=== PATIENT | male | born 1990 | race Caucasian/White ===

== ENCOUNTER 2017-01-26 07:53 | Emergency (ER) | payer OTHER ==
--- NOTE | 2017-01-26 08:03 | EDPHY ---
HPI/HX/ROS/PE/MDM Narrative: CHIEF COMPLAINT: Vomiting, diarrhea with blood HPI: The patient is a 26 y/o male with a history of hemorrhoids complaining of vomiting, diarrhea with blood, and nausea since Wednesday, 2 days ago. For the last several weeks he has had inconsistent bowel movements. On Wednesday, 3 days ago, he believes he ate undercooked ground beef. The next day he had watery and loose diarrhea. He went to an urgent care after he noticed bright red blood with a mucous consistency mixed into his stool. There was more mucous present in his stool than prior hemorrhoid episodes. He is currently having intermittent LUQ abdominal pain. Denies dark stool, fever, urinary complaints, chest pain or other pertinent symptoms. REVIEW OF SYSTEMS: Aside from elements discussed in the HPI, a comprehensive 10-point review of systems was reviewed and is negative. PMH: Bladder and kidney surgery, irritable bowel syndrome, hemorrhoids SOCIAL HISTORY: Lives in [place], works for [employer] PHYSICAL EXAM: General: Patient is alert, in no acute distress. ENT: Eyes are normal to inspection. ENT inspection normal. Neck: Normal inspection. Full range of motion. Respiratory: No respiratory distress. Breath sounds normal bilaterally. Cardiovascular: Regular rate and rhythm. Strong peripheral pulses. Normal cap refill. Abdomen: The abdomen is nontender to palpation. There are no peritoneal signs. There are normal bowel sounds. Back: Normal to inspection. No tenderness to palpation. Skin: Normal color. No rash. Warm and dry. Extremities: Normal appearance. Full range of motion. Neuro: Oriented x3. Normal motor function. Normal sensory function. Portions of this note were transcribed by an ED scribe. I personally performed the history, physical exam, and medical decision making; and confirm the accuracy of the information in the transcribed note. ED Course: 0817: 4mg IV Zofran and 1L IV NS administered. Patient's stool sample is negative for GI pathogen. Reassessed patient and discussed laboratory findings. He is feeling better after Zofran and NS. I have prescribed home Zofran. Return precautions provided ; patient is comfortable with this plan. MDM: This is a young healthy male who complains of diarrhea, mild abdominal pain and some blood-streaked stool in the setting of history of hemmorhoids. His workup reveals a negative WBC, which together with a benign abdominal exam make serious abdominal pathology such as appendicitis or diverticulitis very unlikely. There is no evidence of significant GI bleed. A stool sample was obtained and sent for PCR which is negative for organism. I suspect the patient 's blood in stool is secondary to hemorrhoids as he suspects. I think he is safe for further workup as an outpatient. I do not think advanced imaging here in the ED is indicated. We discussed strict return precautions, and the patient promises to return for any worsening or continued symptoms. - Data Points Laboratory Results: Laboratory Results 01/26/17 08:07 01/26/17 08:07 01/26/17 01/26/17 08:07 08:07 WBC 5.64 10^3/uL 10^3/uL (3.80-9.50) RBC 5.41 10^6/uL 10^6/uL (4.40-6.38) Hgb 16.9 g/dL g/dL (13.7-17.5) Hct 47.5 % % (40.0-51.0) MCV 87.8 fL fL (81.5-99.8) MCH 31.2 pg pg (27.9-34.1) MCHC 35.6 g/dL g/dL (32.4-36.7) RDW 13.2 % % (11.5-15.2) Plt Count 234 10^3/uL 10^3/uL (150-400) MPV 10.0 fL fL (8.7-11.7) Neut % (Auto) 57.1 % % (39.3-74.2) Lymph % (Auto) 28.0 % % (15.0-45.0) [place] % (Auto) 10.6 % % (4.5-13.0) Eos % (Auto) 2.0 % % (0.6-7.6) Baso % (Auto) 0.5 % % (0.3-1.7) Nucleat RBC Rel Count 0.0 % % (0.0-0.2) Absolute Neuts (auto) 3.22 10^3/uL 10^3/uL (1.70-6.50) Absolute Lymphs (auto) 1.58 10^3/uL 10^3/uL (1.00-3.00) Absolute Monos (auto) 0.60 10^3/uL 10^3/uL (0.30-0.80) Absolute Eos (auto) 0.11 10^3/uL 10^3/uL (0.03-0.40) Absolute Basos (auto) 0.03 10^3/uL 10^3/uL (0.02-0.10) Absolute Nucleated RBC 0.00 10^3/uL 10^3/uL (0-0.01) Immature Gran % 1.8 % H % (0.0-1.1) Immature Gran # 0.10 10^3/uL 10^3/uL (0.00-0.10) Sodium 140 mEq/L mEq/L (134-144) Potassium 4.4 mEq/L mEq/L (3.5-5.2) Chloride 103 mEq/L mEq/L (97-110) Carbon Dioxide 24 mEq/l mEq/l (22-31) Anion Gap 13 mEq/L mEq/L (8-16) BUN 10 mg/dL mg/dL (7-23) Creatinine 0.9 mg/dL mg/dL (0.7-1.3) Estimated GFR > 60 Glucose 120 mg/dL H mg/dL (70-100) Calcium 9.8 mg/dL mg/dL (8.5-10.4) Medications Given: Discontinued Medications Sodium Chloride (Ns) 1,000 mls @ 0 mls/hr IV EDNOW ONE; Wide Open PRN Reason: Protocol Stop: 01/26/17 08:14 Last Admin: 01/26/17 08:24 Dose: 1,000 mls Ondansetron HCl (Zofran) 4 mg IVP EDNOW ONE Stop: 01/26/17 08:17 Last Admin: 01/26/17 08:30 Dose: Not Given Microbiology Results: MICROBIOLOGY 01/26/17 08:23 Stool Gastrointestinal Tract Panel (PCR) - Final No Organism Detected General Time Seen by Provider: 01/26/17 08:02 Initial Vital Signs: Initial Vital Signs Temperature (C) 37 C 01/26/17 07:56 Heart Rate 75 01/26/17 07:56 Respiratory Rate 16 01/26/17 07:56 Blood Pressure 119/79 01/26/17 07:56 O2 Sat (%) 97 01/26/17 07:56 O2 Delivery Mode Room Air Allergies/Adverse Reactions: gentamicin [Gentamicin] Allergy (Verified 08/30/14 22:42) Home Medications: Medication Instructions Recorded Bentyl 10 MG (RX) 08/30/14 Cephalexin [Keflex] 500 mg PO TID #21 cap 08/30/14 Omeprazole [Prilosec 20 mg] 08/30/14 Ondansetron Odt [Zofran Odt] 4 mg PO Q4PRN PRN #10 tab 01/26/17 Ondansetron Odt [Zofran Odt] 4 mg PO Q4PRN PRN #10 tab 01/26/17 Departure - Departure Disposition: Home, Routine, Self-Care Clinical Impression: Nausea & vomiting Condition: Good Instructions: Acute Nausea and Vomiting (ED) Additional Instructions: 1. Increase fluid intake. 2. Take 4mg oral Zofran as needed for nausea. 3. Follow-up with your primary doctor within 72 hours. 4. Return to the Emergency Department for fever, chest pain, shortness of breath , increasing pain, or other worsening of condition. Referrals: [facility] [Other] - As per Instructions Prescriptions: Ondansetron Odt [Zofran Odt] 4 mg PO Q4PRN PRN #10 tab PRN Reason: Nausea Ondansetron Odt [Zofran Odt] 4 mg PO Q4PRN PRN #10 tab PRN Reason: Nausea Report Scribed for: David Weber Report Scribed by: Parris Kilgore Date of Report: 01/26/17 Time of Report: 08:03
[2017-01-26] MEDS ORDERED: NS 1,000 ML IV ONE (08:13)
[2017-01-26] MEDS ORDERED: ONDANSETRON 4 MG/2 ML VIAL IVP ONE (08:16)
[2017-01-26 08:20] LABS: % IMMATURE GRANULYOCYTES 1.8 % (0.0-1.1); ADD DIFF? NO; ADD MORPH? NO; ADD SCAN? NO; ATYPICAL LYMPHOCYTE FLAG 0 (0-99); FRAGMENT RBC FLAG 0 (0-99); HEMATOCRIT 47.5 % (40.0-51.0); HEMOGLOBIN 16.9 g/dL (13.7-17.5); LEFT SHIFT FLG 20 (0-99); LIPEMIA HEMOLYSIS FLAG 90 (0-99); MEAN CELL HEMOGLOBIN 31.2 pg (27.9-34.1); MEAN CELL HEMOGLOBIN CONCENTR. 35.6 g/dL (32.4-36.7); MEAN CELL VOLUME 87.8 fL (81.5-99.8); PLATELET CLUMPS FLAG 0 (0-99); PLATELET COUNT 234 10^3/uL (150-400); RED BLOOD CELL COUNT 5.41 10^6/uL (4.40-6.38); RED CELL DISTRIBUTION WIDTH 13.2 % (11.5-15.2)
[2017-01-26 08:53] LABS: ANION GAP 13 mEq/L (8-16); CALCIUM 9.8 mg/dL (8.5-10.4); CARBON DIOXIDE 24 mEq/l (22-31); CHLORIDE 103 mEq/L (97-110); CREATININE 0.9 mg/dL (0.7-1.3); GLOMERULAR FILTRATION RATE > 60; GLUCOSE 120 mg/dL (70-100); POTASSIUM 4.4 mEq/L (3.5-5.2); SODIUM 140 mEq/L (134-144)
[2017-01-26 13:03] VITALS: BP 118/70; PULSE 65; RESP 18; TEMP 98.1; O2SAT 95
== END 2017-01-26 13:07 | disposition home or self-care (01) ==
DX: R11.2 Nausea with vomiting, unspecified (principal); E86.9 Volume depletion, unspecified
CPT/HCPCS: J2405

== ENCOUNTER 2017-06-14 11:57 | Emergency (ER) | payer OTHER ==
--- NOTE | 2017-06-14 12:49 | EDPHY ---
H & P Stated Complaint: Back pain Time Seen by Provider: 06/14/17 12:49 HPI/ROS: HPI: This is a 27-year-old male who presents with Chief Complaint: Lower back pain Location: Bilateral lower back Quality: Pain and decreased range of motion Duration: Since yesterday evening around 7:00 p.m. Signs and Symptoms: No bleeding, no radiation, no numbness, no weakness, no tingling, no incontinence, + decreased range of motion, no swelling, + pain, no fever Timing: Acute Severity: Severe Context: Patient arrives via EMS with complaints of sudden onset of bilateral, mid and lower lumbar pain that occurred around 7:00 p.m. 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 He reports that he felt a sharp, pulling and popping sensation in his mid and lower back that almost brought him to his knees. He reports that he had increased pain with trying to straighten. He was unable to climb into bed or climb stairs. He reports that he had no prior history of lower back pain/injuries. He is able to urinate without difficulty. He complains of decreased range of motion and severe pain despite receiving 100 mcg of fentanyl en route to the emergency room. Denies paresthesias/weakness/bowel or bladder incontinence or problems. Urinal noted long-term filled at bedside with dark yellow urine. Modifying Factors: See above Comment: ROS: see HPI Constitutional: No fever, no chills, no weight loss Eyes: No blurred vision Respiratory: No shortness of breath, no cough Cardiovascular: No chest pain Gastrointestinal: No nausea, no vomiting no diarrhea Genitourinary: No dysuria Extremities: No myalgias Neurologic: No weakness, no numbness Skin: No rashes Hematologic: No bruising, no bleeding MEDICAL/SURGICAL/SOCIAL HISTORY: med hx-ibs surg-bladder,kidney and tonsils, duplicate R kidney Social history: Employed [employer] CONSTITUTIONAL: Moderate distress, irritable, young adult white male who is nontoxic in appearance, awake and alert HEENT: Atraumatic and normocephalic, PERRL, EOMI. Nares patent; no rhinorrhea; no nasal mucosal edema. Tympanic membranes clear. Oropharynx clear, no exudate and moist pink mucosa. Airway patent. No lymphadenopathy. No meningismus. Cardiovascular: Normal S1/S2, regular rate, regular rhythm, without murmur rub or gallop. PULMONARY/CHEST: Symmetrical and nontender. Clear to auscultation bilaterally. Good air movement. No accessory muscle usage. ABDOMEN: Soft, nondistended, nontender, no rebound, no guarding, no peritoneal signs, no masses or organomegaly. No CVAT. PELVIC: no pain with rocking; bilateral hips flexion 125 degrees, extension 30 degrees, mild pain internal rotation and no pain external rotation. BACK: No midline tenderness, bilateral lumbar reproducible paraspinous muscle tenderness, no paraspinous spasm, deep tendon reflexes 2/2, moderate pain with straight leg raise, No foot drop. Achilles reflexes are equal bilaterally. Patient will not perform flexion, extension, bilateral lateral rotation secondary to pain. EXTREMITIES: 2/2 pulses, strength 5/5, no deformities, no clubbing, no cyanosis or edema. NEUROLOGICAL: no focal neuro deficits. GCS 15. SKIN: Warm and dry, no erythema. no rash. Good capillary refill. Source: Patient, EMS Exam Limitations: No limitations - Medical/Surgical History Hx Asthma: No Hx Chronic Respiratory Disease: No Hx Diabetes: No Hx Cardiac Disease: No Hx Renal Disease: No Hx Cirrhosis: No Hx Alcoholism: No Hx HIV/AIDS: No Hx Splenectomy or Spleen Trauma: No Other PMH: med hx-ibs. surg-bladder,kidney and tonsils, duplicate R kidney - Social History Smoking Status: Current every day smoker Constitutional: Initial Vital Signs Temperature (C) 36.7 C 06/14/17 11:59 Heart Rate 55 L 06/14/17 11:59 Respiratory Rate 18 06/14/17 11:59 Blood Pressure 119/69 06/14/17 11:59 O2 Sat (%) 94 06/14/17 11:59 O2 Delivery Mode Room Air Allergies/Adverse Reactions: gentamicin [Gentamicin] Allergy (Verified 06/14/17 12:04) Home Medications: Medication Instructions Recorded Bentyl 10 MG (RX) 08/30/14 Cephalexin [Keflex] 500 mg PO TID #21 cap 08/30/14 Omeprazole [Prilosec 20 mg] 08/30/14 Ondansetron Odt [Zofran Odt] 4 mg PO Q4PRN PRN #10 tab 01/26/17 Ondansetron Odt [Zofran Odt] 4 mg PO Q4PRN PRN #10 tab 01/26/17 Diazepam [Valium 5 MG (*)] 5 mg PO Q8 PRN #10 tab 06/14/17 methylPREDNISolone [Medrol Dose 1 each PO AD #0 ea 06/14/17 Amari] oxyCODONE/APAP 5/325 [Percocet 1 - 2 tab PO Q4H PRN #10 tab 06/14/17 5/325 (*)] Medical Decision Making - Diagnostics Imaging Results: Imaging Impressions Lumbar Spine MRI 06/14/17 13:10 Impression: 1. Multilevel mild degenerative disk disease, worse at L1-L2 and multilevel mild bilateral facet arthropathies, with mild disk bulges, resulting in mild central canal stenosis, worse at the L3-L4 level, without neural foraminal stenosis. 2. Please see above findings at specific disk levels. ED Course/Re-evaluation: Patient reports that his pain is still 10/10 with decreased range of motion. MRI lumbar spine ordered along with IV Valium, IV Decadron, IV Toradol, and p.o. Gabapentin 1530: Notified by nursing that patient is now complaining of moderate pain again. IV Dilaudid 1 mg ordered. 1620: Lumbar MRI: Multilevel mild degenerative disk disease, worse at L1-L2 and multilevel mild bilateral facet arthropathies, with mild disk bulges, resulting in mild central canal stenosis, worse at the L3-L4 level, without neural foraminal stenosis. Patient reports that pain is adequately controlled. Ambulatory without deficits. Called friends for a ride. Work excuse provided. Neurosurgery follow-up. This patient was seen under the supervision of my secondary supervising physician. I evaluated care for this patient independently. Differential Diagnosis: Back pain including but not limited to muscular pain, herniated disc, spine fracture, intra-abdominal causes and urinary tract infection. - Data Points Medications Given: Discontinued Medications Dexamethasone (Decadron Injection) 8 mg IVP EDNOW ONE Stop: 06/14/17 13:11 Last Admin: 06/14/17 13:17 Dose: 8 mg Diazepam (Valium) 5 mg IVP EDNOW ONE Stop: 06/14/17 13:11 Last Admin: 06/14/17 13:17 Dose: 5 mg Gabapentin (Neurontin) 600 mg PO EDNOW ONE Stop: 06/14/17 13:11 Last Admin: 06/14/17 13:17 Dose: 600 mg Hydromorphone HCl (Dilaudid) 1 mg IVP EDNOW ONE Stop: 06/14/17 15:32 Last Admin: 06/14/17 15:59 Dose: 1 mg Ketorolac Tromethamine (Toradol) 15 mg IVP EDNOW ONE Stop: 06/14/17 13:11 Last Admin: 06/14/17 13:17 Dose: 15 mg Departure - Departure Disposition: Home, Routine, Self-Care Clinical Impression: Lumbar facet arthropathy, Bulging lumbar disc Lumbar strain Qualifiers: Encounter type: initial encounter Qualified Code(s): S39.012A - Strain of muscle, fascia and tendon of lower back, initial encounter Condition: Good Instructions: Degenerative Disc Disease (ED), Lumbar Disc Herniation (ED) Additional Instructions: Take Tylenol 650 mg every 4 hours and/or Ibuprofen 600 mg every 8 hours with food as needed for pain. Use Percocet every 6 hours as needed for severe/break through pain. Do not use Tylenol and Percocet concomitantly. Take Medrol Dosepak as directed. Take Flexeril every 8 hr as needed for muscle spasms. Activity: Limit activity to pain tolerance. Activity resulting in pain should be avoided. Establish care with primary care provider and follow up with Neurosurgery if symptoms persist after 7 days. Return to the ER immediately if you have new or worsening back pain, fevers/ chills, flu like symptoms, incontinence or inability to urinate or defecate, weakness, paralysis, or any other symptom that concerns you Referrals: Feroz Mcinotsh MD [Medical Doctor] - As per Instructions Marni Omalley MD [Medical Doctor] - As per Instructions Prescriptions: Diazepam [Valium 5 MG (*)] 5 mg PO Q8 PRN #10 tab PRN Reason: Spasms methylPREDNISolone [Medrol Dose Amari] 1 each PO AD #0 ea oxyCODONE/APAP 5/325 [Percocet 5/325 (*)] 1 - 2 tab PO Q4H PRN #10 tab PRN Reason: Pain, Severe
[2017-06-14] MEDS ORDERED: DIAZEPAM 5 MG/ML 1 ML SYR IVP ONE (13:10)
[2017-06-14] MEDS ORDERED: KETOROLAC 15 MG/1 ML SDV IVP ONE (13:10)
[2017-06-14] MEDS ORDERED: DEXAMETHASONE 4 MG/ML VIAL IVP ONE (13:10)
[2017-06-14] MEDS ORDERED: GABAPENTIN 300 MG CAP PO ONE (13:10)
[2017-06-14] MEDS ORDERED: HYDROmorphONE/DILAUDID 2 MG/ML INJ IVP ONE (15:31)
[2017-06-14 17:06] VITALS: BP 114/72
== END 2017-06-14 17:10 | disposition home or self-care (01) ==
LOC: EDUNIT#
DX: S39.012A Strain of muscle, fascia and tendon of lower back, initial encounter (principal); M51.06 Intervertebral disc disorders with myelopathy, lumbar region; F17.200 Nicotine dependence, unspecified, uncomplicated; X50.9XXA Other and unspecified overexertion or strenuous movements or postures, initial encounter; Y99.8 Other external cause status; Y93.89 Activity, other specified
CPT/HCPCS: 96374; J1100; J1170; J1885; J3360